=== PATIENT | female | born 1980 | race Caucasian/White ===

== ENCOUNTER → 2021-05-04 | Outpatient (CLI) | payer OTHER ==
--- NOTE | 2021-05-04 18:18 | XR ---
EXAMINATION TYPE: XR ankle complete LT DATE OF EXAM: 05/04/2021 5:22 PM INDICATION: Patient age:Female; 41 years old; Reason for study: S93.402A S93.602A; [facility]. COMPARISON: Foot radiographs same day TECHNIQUE: The left ankle is imaged in 3 projections. FINDINGS: There is no evidence of acute osseous pathology. The joint spaces are well-preserved without evidenc e of subluxation or dislocation. Kager's fat pad is intact. Mild soft tissue swelling around the ankl e. No radiopaque foreign bodies are identified. IMPRESSION: 1. No evidence of acute fracture. 2. Subcutaneous swelling around the ankle likely secondary to underlying soft tissue injury.
--- NOTE | 2021-05-04 18:19 | XR ---
EXAMINATION TYPE: XR foot complete LT DATE OF EXAM: 05/04/2021 5:22 PM INDICATION: Patient age:Female; 41 years old; Reason for study: S93.402A S93.602A; COMPARISON: Radiograph same day TECHNIQUE: The left foot was examined in the AP, oblique, and lateral projections. FINDINGS: No evidence of any acute osseous pathology. Mild soft tissue swelling around the ankle. Joints are p reserved. Calcaneal Achilles enthesophyte and plantar spur. IMPRESSION: No evidence of acute fracture.
== END | disposition home or self-care (01) ==
LOC: RADXRMAIN 17:01
PROVIDERS: ATTEND Emergency Medicine
DX: M25.472 Effusion, left ankle (principal)

== ENCOUNTER → 2021-05-12 | Outpatient (CLI) | payer OTHER ==
--- NOTE | 2021-05-14 00:05 | XR ---
EXAMINATION TYPE: XR foot complete LT, XR ankle complete LT DATE OF EXAM: 05/12/2021 COMPARISON: 05/04/2021 HISTORY: 41-year-old female. Pain and swelling at left lateral malleolus and left lateral side of the foot after injury on 05/04/2021 TECHNIQUE: Routine 3 views of the left foot as well as the left ankle. FINDINGS: Tiny osteophytosis of the first metatarsal head. Subtle 2.4 mm soft tissue calcification/bone fragmen t is seen along the medial aspect of the distal talus, stable compared to the previous x-ray, nonspec ific. Persistent sharp inferior calcaneal spur with posterior calcaneal enthesophyte at the insertion of the Achilles tendon. Soft tissue swelling along the inferior aspect of the lateral malleolus. Tiny osteophytosis is seen a t the tip of the lateral malleolus, appreciated previously. No definite acute left ankle or left foot fracture identified. Preserved ankle mortise with a smooth talar dome. No sizable ankle joint effusi on. IMPRESSION: No definite left foot or left ankle fracture identified. Persistent soft tissue swelling along the in ferior aspect of the lateral malleolus, underlying soft tissue or ligamentous injury cannot be exclud ed. Other incidental findings as described above.
== END | disposition home or self-care (01) ==
LOC: RADXRMAIN 16:00
PROVIDERS: ATTEND Emergency Medicine
DX: S93.602D Unspecified sprain of left foot, subsequent encounter (principal); S93.402D Sprain of unspecified ligament of left ankle, subsequent encounter; X58.XXXD Exposure to other specified factors, subsequent encounter

== ENCOUNTER 2021-08-18 14:19 | Emergency (ER) | payer SELFPAY ==
[2021-08-18 15:03] VITALS: BP 191/98; PULSE 88; RESP 22; TEMP 98.1
--- NOTE | 2021-08-18 16:28 | XR ---
EXAMINATION TYPE: XR ankle complete LT DATE OF EXAM: 08/18/2021 CLINICAL HISTORY: Pain after fall injury. TECHNIQUE: Frontal, lateral and oblique images of the left ankle are obtained. COMPARISON: Left ankle x-ray May 12, 2021 FINDINGS: There is no acute fracture/dislocation evident in the left ankle. The ankle mortise appea rs within normal limits. Moderate-sized superior and inferior calcaneal spurs are redemonstrated. Th e overlying soft tissue appears unremarkable. IMPRESSION: There is no acute fracture or dislocation in the left ankle. No significant change from prior.
--- NOTE | 2021-08-18 17:45 | ED ---
Lower Extremity Injury HPI - General Chief Complaint: Extremity Injury, Lower Stated Complaint: IHS-L ankle injury Time Seen by Provider: 08/18/21 17:15 Source: patient, RN notes reviewed Mode of arrival: wheelchair Limitations: no limitations - History of Present Illness Initial Comments: This is a 41-year-old female who presents to the emergency department for left ankle pain. She slipped on a wet floor at work and landed on the left ankle. States that she already has tendon and ligament injuries in her ankle, and will be having surgery with Dr. Sanford next month. The fall further exacerbated this injury. She does have crutches, a walking boot, and an ankle brace at home. She has been using the ankle brace. She has tried both ibuprofen and Aleve with no relief. Denies any fevers, chills, sore throat, cough, dyspnea, chest pain, palpitations, abdominal pain, nausea, vomiting, diarrhea, back pain, or headaches. MD Complaint: ankle injury Place: work Improves With: nothing Treatments Prior to Arrival: splint - Related Data Previous Rx's Medication Instructions Recorded HYDROcodone/APAP 5-325MG [Hope 1 tab PO Q6HR PRN 3 Days #12 tab 08/18/21 5-325] Allergies Allergy/AdvReac Type Severity Reaction Status Date / Time No Known Allergies Allergy Verified 08/18/21 15:03 Review of Systems ROS Statement: Those systems with pertinent positive or pertinent negative responses have been documented in the HPI. ROS Other: All systems not noted in ROS Statement are negative. Past Medical History Past Medical History: Asthma, Hypertension, Pneumonia, Rheumatoid Arthritis (RA) History of Any Multi-Drug Resistant Organisms: None Reported Past Surgical History: No Surgical Hx Reported, Adenoidectomy, Tonsillectomy Additional Past Surgical History / Comment(s): cervical sx, ablation, rotater cuff, cyst removal Past Psychological History: Depression Smoking Status: Current every day smoker Past Alcohol Use History: None Reported Past Drug Use History: None Reported General Exam Limitations: no limitations General appearance: alert, in no apparent distress Head exam: Present: atraumatic, normocephalic, normal inspection Respiratory exam: Present: normal lung sounds bilaterally. Absent: respiratory distress, wheezes, rales, rhonchi, stridor Cardiovascular Exam: Present: regular rate, normal rhythm, normal heart sounds. Absent: systolic murmur, diastolic murmur, rubs, gallop, clicks Extremities exam: Present: other (Diffuse swelling and tenderness around the left ankle. 2+ dorsalis pedis and tibialis posterior pulses and capillary refill <1 second bilaterally.) Neurological exam: Present: alert, oriented X3, CN II-XII intact Psychiatric exam: Present: normal affect, normal mood Skin exam: Present: warm, dry, intact, normal color. Absent: rash Course Vital Signs 08/18/21 14:57 Temperature 98.1 F Pulse Rate 88 Respiratory 22 Rate Blood Pressure 191/98 O2 Sat by Pulse 99 Oximetry Medical Decision Making - Medical Decision Making This is a 41-year-old female who presents to the emergency department for left ankle pain after a fall. X-ray revealed no acute abnormalities, however we are not able to fully evaluate any additional damage to her tendons or ligaments. Given the acute on chronic injury, will give the patient a 3 day course of Hope and advised she use this sparingly. Instructed her to use this alongside either the ibuprofen or Aleve, and to also supplement this with Tylenol. She is instructed to ice the injury for the first 48-72 hours, followed by heat there afterwards. Also instructed her to contact Dr. Sanford's office on Saturday for follow-up. She can continue to use either the walking boot or ankle brace, which ever she finds the most relief with. Patient is able to ambulate. Return precautions reviewed in depth, the patient is instructed to return to the emergency department with any new, worsening, or concerning symptoms. Patient verbalized understanding. This case was discussed in detail with the attending ED physician. Presentation, findings, and treatment plan discussed in detail as well. - Radiology Data Radiology results: report reviewed, image reviewed Disposition Clinical Impression: Left ankle sprain Disposition: HOME SELF-CARE Instructions (If sedation given, give patient instructions): Ankle Sprain (ED) Additional Instructions: Return to the emergency department with any new, worsening, or concerning symptoms. Use the Hope sparingly and take it at night until you know how it affects you. Take ibuprofen or Aleve and Tylenol with this. Ice the ankle for the first 48-72 hours, followed by heat there afterwards. Contact Dr. Sanford's office next week for further instruction. Prescriptions: HYDROcodone/APAP 5-325MG [Hope 5-325] 1 tab PO Q6HR PRN 3 Days #12 tab PRN Reason: Pain Is patient prescribed a controlled substance at d/c from ED?: Yes If prescribed controlled substance>3 days was MAPS reviewed?: Prescribed <3 Days Referrals: Dustin Lopez MD [Primary Care Provider] - 1-2 days
== END 2021-08-18 17:45 | disposition home or self-care (01) ==
LOC: EC 14:19
DX: S93.402A Sprain of unspecified ligament of left ankle, initial encounter (principal); I10 Essential (primary) hypertension; J45.909 Unspecified asthma, uncomplicated; F17.200 Nicotine dependence, unspecified, uncomplicated; W01.0XXA Fall on same level from slipping, tripping and stumbling without subsequent striking against object, initial encounter

== ENCOUNTER 2021-09-08 08:28 | Day surgery (SDC) | payer OTHER ==
[2021-09-06 11:51] VITALS: BMI 39.3
[~2021-09-08 08:28] MED LIST: DEXAMETHASONE SOD PHOSPHATE 4 MG/ML 1 ML VIAL IV ONE; LACTATED RINGERS 1,000 ML IV SCH; LIDOCAINE 1% (10MG/ML) FOR IV START INTRADERMA PRN; MIDAZOLAM 2 MG/2 ML VIAL IV PRN; Pre Op ABX Message 1 EACH MISC MISCELLANE ONE
[2021-09-08] MEDS: ONDANSETRON 4 MG/2 ML VIAL IVP ONE ×2 (09:11→11:49)
[2021-09-08] MEDS ORDERED: MIDAZOLAM 2 MG/2 ML VIAL IVP ONE (09:35)
[2021-09-08] MEDS ORDERED: fentaNYL (PF) 50 MCG/ML 2 ML AMP IVP ONE (09:35)
[2021-09-08] MEDS ORDERED: PROPOFOL 10 MG/ML 20 ML VIAL IV ONE (10:17)
[2021-09-08] MEDS ORDERED: MIDAZOLAM 2 MG/2 ML VIAL ONE (10:17)
[2021-09-08] MEDS ORDERED: fentaNYL (PF) 50 MCG/ML 2 ML AMP ONE (10:17)
[2021-09-08] MEDS ORDERED: ROPIVACAINE 5 MG/ML 30 ML VIAL ONE (10:17)
[2021-09-08] MEDS ORDERED: SUCCINYLCHOLINE CHLORIDE VIAL 200 MG/10 ML VIAL IV ONE (10:17)
[2021-09-08] MEDS ORDERED: SODIUM CHLORIDE 0.9% (PF) 10 ML VIAL ONE (10:17)
--- NOTE | 2021-09-08 11:31 | P.ANPRN ---
Procedure Note - Anesthesia - Nerve Block Performed Left Popliteal Single Time Out Performed: Yes (0934) Date of Procedure: 09/08/21 Procedure Start Time: 09:35 Procedure Stop Time: 09:39 Location of Patient: PreOp Indication: Acute Post-Operative Pain, Requested by Surgeon Specifically requested for management of pain by DrGabrielle: Cristi Sanford Sedation Type: Sedate with meaningful contact maintained Preparation: Sterile Prep Position: Supine Catheter: None Needle Types: Pajunk Needle Gauge: 21 Ultrasound used to visualize needle placement: Yes Ultrasound used to observe medication spread: Yes Injectate: 0.5% Ropivacaine (see comment for volume) (15cc + 15cc nacl) Blood Aspirated: No Pain Paresthesia on Injection Noted: No Resistance on Injection: Normal Image Stored and Saved: Yes Events: Uneventful and Well Tolerated
--- NOTE | 2021-09-08 11:32 | P.ANPRN ---
Procedure Note - Anesthesia - Nerve Block Performed Left Adductor Canal Single Time Out Performed: Yes (0934) Date of Procedure: 09/08/21 Procedure Start Time: 09:39 Procedure Stop Time: 09:41 Location of Patient: PreOp Indication: Acute Post-Operative Pain, Requested by Surgeon Specifically requested for management of pain by DrGabrielle: Cristi Sanford Sedation Type: Sedate with meaningful contact maintained Preparation: Sterile Prep Position: Supine Catheter: None Needle Types: Pajunk Needle Gauge: 21 Ultrasound used to visualize needle placement: Yes Ultrasound used to observe medication spread: Yes Injectate: 0.5% Ropivacaine (see comment for volume) (15cc + 15cc nacl pf) Blood Aspirated: No Pain Paresthesia on Injection Noted: No Resistance on Injection: Normal Image Stored and Saved: Yes Events: Uneventful and Well Tolerated
[2021-09-08 11:35] VITALS: TEMP 97.9
[2021-09-08] MEDS: HYDROmorphone 0.5 MG/0.5 ML SYRINGE IVP PRN ×4 (11:40→12:12)
--- NOTE | 2021-09-08 12:24 | P.OP ---
Date of Procedure: 09/08/21 Preoperative Diagnosis: 1. Left ankle instability 2. Peroneal tendinitis left ankle Postoperative Diagnosis: 1. Same 2. Same Procedure(s) Performed: 1. Secondary repair left lateral ankle ligaments 2. Debridement of peroneus brevis tendon left ankle Implants: Arthrex internal brace Arthrex fibertak anchors 2 Anesthesia: ERNESTINEA Surgeon: Cristi Sanford Estimated Blood Loss (ml): 3 Pathology: none sent Condition: stable Disposition: PACU Operative Findings: Abnormal extension of the Proteus brevis muscle belly into the peroneal groove on the fibula Description of Procedure: Prior to the patient being brought to the operating room, anesthesia administered a nerve block on the affected extremity, utilizing ultrasonic guidance and mild sedation. Once completed the patient was taken to the operating room and placed on table supine position. Timeout was taken to confirm correct patient identifiers, correct procedure, and correct site of surgery. When all staff in the room were in agreement with the timeout, the patient was induced and placed under general anesthesia. A bump was placed underneath the hip to internally rotate the affected leg. A well-padded tourniquet was placed on the midcalf and then the affected extremity prepped and draped in usual manner. The leg was exsanguinated and the tourniquet inflated to 250 mmHg. Attention was directed over the lateral ankle where a linear incision was made at the midline of the fibula and curved anteriorly toward the distal tip.. The incision was deepened down to the subcutaneous tissue careful to identify, avoid, and retract any neurovascular structures and cauterize any bleeding vessels. Blunt dissection was continued down to level of the lateral ankle joint capsule and ligamentous structures as well as posterior to the fibula over the peroneal tendon sheath. The peroneal tendon sheath was opened first just superior to the peroneal retinaculum. Both tendons were visually inspected and found to have normal appearance. However the Proteus brevis muscle belly extended abnormally into the peroneal groove on the posterior aspect of the fibula. The muscle belly was sharply incised off of the Proteus brevis all the way into the fibular groove. That way the muscles was no longer encroaching the fibular groove and cause pain in the area. The wound is irrigated thoroughly and the peroneal retinaculum was closed with 3-0 FiberWire The soft tissue structures on the anterior lateral surface of the ankle joint were sharply incised off the anterior surface the lateral malleolus and reflected anteriorly. A ronguer was used to remove the cortical bone off the anterior surface the lateral malleolus which would help facilitate tissue re- adhesion upon repair. With the ankle at 90 and in neutral inversion and eversion, the capsule was palpated on the lateral surface of the talus anterior to the articular surface. A small stab incision was made in the area of the talar body avoiding both the ankle and subtalar joints and near the junction of the neck. A drill hole was then placed utilizing a 3.4 mm drill bit into the talar body avoiding both the ankle and subtalar joints. The hole was then tapped and then the 4.75 mm swivel lock anchor was inserted and impacted and then advanced to proper depth. The same drill bit was used to create the hole for the 3.5 mm anchor in the lateral malleolus. Drill holes for the Arthrex fiber Omar anchors were made one inferior and one superior to the 3.4 mm drill hole in the lateral malleolus. With the drill guides for the anchor still in place, the anchors were inserted into the lateral malleolus and impacted to proper depth. The managing consultant and guide were removed and then tension placed on the suture to lock anchors in place. Once both anchors were in place the wound was thoroughly irrigated with antibiotic saline. The suture on the fiber Santiago anchors was then used to capture the distal ligamentous and capsular structures on the talus and then with the ankle in maximum dorsiflexion and eversion, the suture was tied repairing the ligament. The 2 arms of the internal brace suture were then passed through the 3.5 mm anchor which was then aligned with the drill hole lateral malleolus. Utilizing described tensioning techniques, the anchor and suture were inserted into the drill hole and then the anchor advanced to lock the suture in place. At that time the ankle was tested for stability where anterior drawer and inversion stress were both negative. The wound was again irrigated with antibiotic saline. The fiber Santiago suture was used to sew the retinaculum over the lateral malleolus along with the periosteal flap in a pants over vest fashion. Subcu closure was done with 4-0 Monocryl and skin closure done with 3-0 Stratafix in a running subcuticular manner. Dermal glue was applied across the incision and allowed to dry. Steri-Strips are placed across incision. The incision was covered with an Arthrex jumpstart dressing and then a bulky dry dressing. The tourniquet was released and capillary refill return to all digits on the right foot. The patient was then placed in a well-padded, well molded plaster posterior mold/sugar tong splint. Ankle was held in neutral position until the splint was dried. Anesthesia was reversed and the patient was taken recovery with vital signs stable.
[2021-09-08] MEDS ORDERED: HYDROcodone/APAP 5-325MG 1 EACH TAB ONE (13:34)
[2021-09-08] MEDS ORDERED: HYDROcodone/APAP 5-325MG 1 EACH TAB PO ONE (13:34)
[2021-09-08 14:04] VITALS: BP 125/72; PULSE 93; RESP 16
== END 2021-09-08 14:20 | disposition home or self-care (01) ==
LOC: OR 08:28
PROVIDERS: ATTEND Podiatrist
DX: S93.492A Sprain of other ligament of left ankle, initial encounter (principal); M25.372 Other instability, left ankle; M76.72 Peroneal tendinitis, left leg; I10 Essential (primary) hypertension; J45.909 Unspecified asthma, uncomplicated; F17.210 Nicotine dependence, cigarettes, uncomplicated; F32.A Depression, unspecified; Z79.899 Other long term (current) drug therapy; Z91.09 Other allergy status, other than to drugs and biological substances; Z98.890 Other specified postprocedural states; Z90.89 Acquired absence of other organs; Z97.3 Presence of spectacles and contact lenses; Z83.3 Family history of diabetes mellitus; Z82.49 Family history of ischemic heart disease and other diseases of the circulatory system
CPT/HCPCS: 27698; 64447; 81025; 64445; 76942; C1713 ×2; J2250; J0330; J1100; J2405; J3010; J2795; J2704; J1170; 64999